=== PATIENT | male | born 1950 | race Caucasian/White ===

== ENCOUNTER → 2016-08-31 | Outpatient (CLI) | payer MEDICARE ==
[~2016-08-31] MED LIST: ADVAIR 250/501 DISK IH; ALEVE220 M2 PO; ALEVE220 MG PO; ASMANEX TW200 MICROG IH; ASPIRIN81 M2 PO; ATROVENT 00.5 MG/2.5 IH; CARVEDILOL3.125 MG PO; CLEOCIN150 MG PO; ENDOCET 5-3251 EACH PO; FUROSEMIDE20 MG PO; FUROSEMIDE40 MG PO; KEFLEX500 MG PO; KLOR-CON 1010 ME1 PO; LASIX40 MG PO; LISINOPRIL5 MG PO; MEDROL DOSEPAK4 MG PO; METHOCARBAMOL500 MG PO; NAPROSYN250 MG PO; OXYCONTIN10 MG PO; PERCOCET 10/1 TABLE1 PO; PROAIR HFA8.5 GM IH; PROVENTIL HFA6.7 GM IH; PROVENTIL,2.5 MG/3 M IH; SIMVASTATIN40 MG PO; SOTALOL120 MG PO; STIOLTO RESPIMAT4 GM IH; SYMBICORT60 INHALA1 IH; TRAMADOL HCL50 MG PO; TUDORZA PRESS400 MCG IH; XARELTO10 MG PO; ZESTRIL10 MG PO; ZESTRIL20 MG PO; ZOCOR40 MG PO
== END | disposition home or self-care (01) ==
LOC: CDC 12:05
DX: R00.1 Bradycardia, unspecified (principal); R94.31 Abnormal electrocardiogram [ECG] [EKG]; S93.324D Dislocation of tarsometatarsal joint of right foot, subsequent encounter; S92.351D Displaced fracture of fifth metatarsal bone, right foot, subsequent encounter for fracture with routine healing
CPT/HCPCS: 93000

== ENCOUNTER → 2016-10-14 | Day surgery (SDC) | payer OTHER, MEDICARE ==
[~2016-10-14] VITALS: Ht 177.8 cm; Wt 91.0 kg
[2016-10-14 10:34] VITALS: BP 103/55
[2016-10-14 15:00] VITALS: BP 110/65
[2016-10-14 15:32] VITALS: BP 102/60
== END | disposition home or self-care (01) ==
LOC: SDC 09-06 11:18
PROC: 0QPN04Z Removal of Internal Fixation Device from Right Metatarsal, Open Approach (ICD-10-PCS; principal; 2016-10-14)
DX: T84.293A Other mechanical complication of internal fixation device of bones of foot and toes, initial encounter (principal); I10 Essential (primary) hypertension; I25.2 Old myocardial infarction; J44.9 Chronic obstructive pulmonary disease, unspecified; Z95.810 Presence of automatic (implantable) cardiac defibrillator; F17.210 Nicotine dependence, cigarettes, uncomplicated; Z79.82 Long term (current) use of aspirin; Z79.899 Other long term (current) drug therapy; Z82.49 Family history of ischemic heart disease and other diseases of the circulatory system
CPT/HCPCS: 73630; 76000; C1769; J0131; J0690; J1100; J1885; J2405; J2765; J3010; S0020

== ENCOUNTER 2017-02-19 14:53 | Emergency (ER) | payer OTHER, MEDICARE ==
[~2017-02-19] VITALS: Ht 177.8 cm; Wt 87.0 kg
[2017-02-19 15:44] LABS: HEMATOCRIT 43.8 % (38.0-50.0); MCH 32.8 PG (29.0-34.0); MCHC 33.3 G/DL (30.0-36.0); MCV 98.4 FL (86-99); MEAN PLAT.VOLUME 9.9 uM^3 (9.0-12.4); PLATELET COUNT 232 K/uL (156-360); RBC DIS.WIDTH-CV 14.2 % (11.8-14.6); RBC DIS.WIDTH-SD 50.6 % (39-53); RED BLOOD COUNT 4.45 M/uL (4.00-5.50); WHITE BLOOD COUNT 8.6 K/uL (4.1-10.2)
[2017-02-19 15:53] LABS: INTER. NORMALIZED RATIO 1.1; PROTHROMBIN TIME 12.4 SEC (10.2-12.9)
[2017-02-19 15:55] LABS: PTT 29.7 SEC (25-37)
[2017-02-19 15:57] LABS: CHLORIDE 104 mEq/L (99-109); POTASSIUM 4.1 mEq/L (3.7-5.4); SODIUM 142 mEq/L (136-147)
[2017-02-19 15:59] LABS: GLUCOSE 99 mg/dL (70-99)
[2017-02-19 16:00] LABS: ANION GAP 13 MEQ/L (2-14)
[2017-02-19 16:01] LABS: TOTAL BILIRUBIN 0.5 mg/dL (0.0-1.0)
[2017-02-19 16:03] LABS: ALKALINE PHOSPHATASE 105 IU/L (3-129); GFR ESTIMATE (CALCULATED) 43 mL/min/
[2017-02-19 16:04] LABS: ADD MIUA? YES; BILIRUBIN NEGATIVE; BLOOD LARGE; GLUCOSE (STRIP) NEGATIVE; KETONES NEGATIVE; LEUKOCYTES NEGATIVE; NITRITE NEGATIVE; PROTEIN (STRIP) 100; SPECIFIC GRAVITY 1.012 (1.000-1.030); UROBILINOGEN 0.2 MG/DL (0.2-1.0)
[2017-02-19 16:04] LABS: UREA NITROGEN (BUN) 23 mg/dL (9-23)
[2017-02-19 16:06] LABS: LIPASE 36 U/L (1.0-51.0)
[2017-02-19 16:08] LABS: COLOR BROWN ((YELLOW))
[2017-02-19 16:12] LABS: TROP-I INTERPRETATION NEGATIVE; TROPONIN-I 0.03 ng/mL (0.0-0.30)
[2017-02-19 16:39] LABS: EPITHELIAL CELLS NONE SEEN /HPF; RED BLOOD CELLS TNTC /HPF (0-5); WHITE BLOOD CELLS 0-5 /HPF (0-5)
[2017-02-19 16:40] LABS: BACTERIA 1+ /HPF; MUCUS NONE SEEN /LPF; UCUL ADDED? YES
[2017-02-19 17:52] VITALS: BP 119/68
== END 2017-02-19 17:53 | disposition home or self-care (01) ==
LOC: EME 14:53
PROVIDERS: Emergency Medicine
DX: R31.9 Hematuria, unspecified (principal); N28.89 Other specified disorders of kidney and ureter; R10.30 Lower abdominal pain, unspecified; N28.1 Cyst of kidney, acquired; N40.0 Benign prostatic hyperplasia without lower urinary tract symptoms; K57.30 Diverticulosis of large intestine without perforation or abscess without bleeding; K40.90 Unilateral inguinal hernia, without obstruction or gangrene, not specified as recurrent; I71.4 Abdominal aortic aneurysm, without rupture; I25.10 Atherosclerotic heart disease of native coronary artery without angina pectoris; J44.9 Chronic obstructive pulmonary disease, unspecified; I10 Essential (primary) hypertension; Z95.0 Presence of cardiac pacemaker; Z79.82 Long term (current) use of aspirin; F17.200 Nicotine dependence, unspecified, uncomplicated
CPT/HCPCS: 74177; 80053; 81003; 83690; 84484; 85027; 85610; 85730; 87086 GA; 93005; 99281; 99284; J7030

== ENCOUNTER 2017-02-27 13:43 | Inpatient (IN) | payer OTHER, MEDICARE ==
[~2017-02-27] VITALS: Ht 177.8 cm; Wt 89.0 kg
[~2017-02-27 13:43] MED LIST changes: +LO-DOSE ASPIRIN81 M1 PO
[2017-02-27 14:34] LABS: HEMATOCRIT 39.7 % (38.0-50.0); MCH 33.3 PG (29.0-34.0); MCV 97.8 FL (86-99); MEAN PLAT.VOLUME 9.9 uM^3 (9.0-12.4); PLATELET COUNT 250 K/uL (156-360); RBC DIS.WIDTH-CV 14.6 % (11.8-14.6); RBC DIS.WIDTH-SD 52.9 % (39-53); RED BLOOD COUNT 4.06 M/uL (4.00-5.50); WHITE BLOOD COUNT 14.9 K/uL (4.1-10.2)
[2017-02-27 14:44] LABS: CHLORIDE 107 mEq/L (99-109); POTASSIUM 3.4 mEq/L (3.7-5.4); SODIUM 143 mEq/L (136-147)
[2017-02-27 14:46] LABS: GLUCOSE 116 mg/dL (70-99)
[2017-02-27 14:47] LABS: ANION GAP 13 MEQ/L (2-14)
[2017-02-27 14:50] LABS: GFR ESTIMATE (CALCULATED) 49 mL/min/
[2017-02-27 14:51] LABS: UREA NITROGEN (BUN) 33 mg/dL (9-23)
[2017-02-27 15:12] LABS: TROP-I INTERPRETATION NEGATIVE; TROPONIN-I 0.05 ng/mL (0.0-0.30)
[2017-02-27] MEDS ORDERED: ATROVENT 00.5 MG/2.5 IH (16:45)
[2017-02-27 19:50] VITALS: BP 116/57
[2017-02-27 23:15] VITALS: BP 111/61
[2017-02-28 03:40] VITALS: BP 129/64
[2017-02-28 07:03] LABS: MCHC 33.1 G/DL (30.0-36.0); MCV 99.7 FL (86-99); MEAN PLAT.VOLUME 9.9 uM^3 (9.0-12.4); PLATELET COUNT 199 K/uL (156-360); RBC DIS.WIDTH-CV 14.8 % (11.8-14.6); RBC DIS.WIDTH-SD 54.1 % (39-53); RED BLOOD COUNT 3.61 M/uL (4.00-5.50)
[2017-02-28 07:28] LABS: ANION GAP 13 MEQ/L (2-14); CHLORIDE 108 MEQ/L (99-109); GFR ESTIMATE (CALCULATED) 53 mL/min/; POTASSIUM 3.7 MEQ/L (3.7-5.4); SAMPLE HEMOLYSIS CHECK 0; SAMPLE ICTERIC CHECK 0; SAMPLE LIPEMIA CHECK 0; SODIUM 143 MEQ/L (136-147); UREA NITROGEN (BUN) 36 mg/dL (9-23)
[2017-02-28 07:31] LABS: GLUCOSE 219 mg/dL (70-99)
[2017-02-28 08:09] VITALS: BP 124/67
[2017-02-28 09:20] LABS: INTERNAL CONTROL VALID? YES
[2017-02-28 11:47] VITALS: BP 119/61
[2017-02-28 12:20] LABS: ADD MIUA? NO; BILIRUBIN NEGATIVE; BLOOD NEGATIVE; COLOR YELLOW ((YELLOW)); GLUCOSE (STRIP) NEGATIVE; KETONES NEGATIVE; LEUKOCYTES NEGATIVE; NITRITE NEGATIVE; PROTEIN (STRIP) NEGATIVE; SPECIFIC GRAVITY 1.015 (1.000-1.030); UROBILINOGEN 0.2 MG/DL (0.2-1.0)
[2017-02-28 15:53] VITALS: BP 130/66
[2017-02-28 20:08] VITALS: BP 121/60
[2017-03-01] VITALS (7 sets, daily range): BP systolic 107–141; BP diastolic 54–66
[2017-03-02 08:57] VITALS: BP 129/66
[2017-03-02] MEDS ORDERED: DELTASONE20 M1 PO (09:57)
[2017-03-02] MEDS ORDERED: LEVAQUIN500 MG PO (09:57)
== END 2017-03-02 10:43 | disposition home or self-care (01) | DRG 190 ==
LOC: EME 13:43 → 2EAST 16:57 → EDOF 16:57 → ENRESERV 17:00 → 2EAST 19:40
PROVIDERS: Emergency Medicine; Family Medicine
DX: J44.0 Chronic obstructive pulmonary disease with (acute) lower respiratory infection (principal); J18.9 Pneumonia, unspecified organism; J44.1 Chronic obstructive pulmonary disease with (acute) exacerbation; C64.1 Malignant neoplasm of right kidney, except renal pelvis; R55 Syncope and collapse; I25.10 Atherosclerotic heart disease of native coronary artery without angina pectoris; I34.0 Nonrheumatic mitral (valve) insufficiency; I25.5 Ischemic cardiomyopathy; N18.3 Chronic kidney disease, stage 3 (moderate); M10.9 Gout, unspecified; M79.671 Pain in right foot; I50.22 Chronic systolic (congestive) heart failure; G43.909 Migraine, unspecified, not intractable, without status migrainosus; F17.200 Nicotine dependence, unspecified, uncomplicated; I25.2 Old myocardial infarction; M15.9 Polyosteoarthritis, unspecified
CPT/HCPCS: 71020; 73630; 80048; 80202; 81003; 83880; 84484; 85027; 87449; 93005; 94640; 94640 76; 99202; 99281; 99285; J0692; J1644; J2930; J3370; J7030; J7050

== ENCOUNTER 2017-03-23 22:02 | Inpatient (IN) | payer OTHER, MEDICARE ==
[~2017-03-23] VITALS: Ht 177.8 cm; Wt 90.0 kg
[~2017-03-23 22:02] MED LIST changes: +DELTASONE20 M1 PO; +LEVAQUIN500 MG PO
[2017-03-24] VITALS (13 sets, daily range): BP systolic 106–145; BP diastolic 60–84
[2017-03-24] MEDS ORDERED: ULORIC40 MG PO (05:52)
[2017-03-24] MEDS ORDERED: PERCOCET 5/31 TABLET PO (10:03)
[2017-03-24 10:34] LABS: HEMATOCRIT 37.5 % (38.0-50.0); MCV 101.9 FL (86-99)
[2017-03-24 13:10] LABS: BICARBONATE 28.2 mEq/L (22-26); COMMENTS - BLOOD GASES A+C+; DEVICE VENT; METHEMOGLOBIN 1.7 % (0-1.5); PCO2 50 mm Hg (35-45); PO2 107 mm Hg (80-100); SITE LR; pH 7.36 (7.35-7.45)
[2017-03-24 13:11] LABS: FI02 60 %; MECHANICAL RATE 12 resp/min; MODE AC; PEEP 5 CM/H20; TIDAL VOLUME 500 ML; TOTAL RESP RATE 12 resp/min
[2017-03-24 13:26] LABS: EOSINOPHIL (%) 0.9 % (0-5); EOSINOPHIL COUNT 0.1 K/uL (0-0.3); HEMATOCRIT 34.7 % (38.0-50.0); IMMATURE GRANULOCYTE (%) 0.5 % (0.0-0.7); INSTRUMENT ABS NEUTROPHIL CT 6.1 K/uL; LYMPHOCYTE COUNT 0.8 K/uL (1.0-2.8); MCH 34.7 PG (29.0-34.0); MCHC 34.6 G/DL (30.0-36.0); MCV 100.3 FL (86-99); MEAN PLAT.VOLUME 9.5 uM^3 (9.0-12.4); MONOCYTE (%) 8.9 % (3-12); MONOCYTE COUNT 0.7 K/uL (0-0.8); NEUTROPHIL (%) 78.6 % (45-76); NEUTROPHIL COUNT 6.1 K/uL (1.8-6.4); PLATELET COUNT 162 K/uL (156-360); RBC DIS.WIDTH-CV 14.5 % (11.8-14.6); RBC DIS.WIDTH-SD 52.4 % (39-53); RED BLOOD COUNT 3.46 M/uL (4.00-5.50); WHITE BLOOD COUNT 7.7 K/uL (4.1-10.2)
[2017-03-24 13:33] LABS: PROTHROMBIN TIME 11.4 SEC (10.2-12.9)
[2017-03-24 13:36] LABS: PTT 26.4 SEC (25-37)
[2017-03-24 13:42] LABS: METH RESISTANT S AUREUS PCR NEGATIVE (NEGATIVE)
[2017-03-24 13:43] LABS: PROBE CHECK PASS; SPECIMEN PROCESSING CONTROL PASS
[2017-03-24 13:48] LABS: ALKALINE PHOSPHATASE 73 IU/L (3-129); ANION GAP 6 MEQ/L (2-14); CHLORIDE 104 MEQ/L (99-109); GFR ESTIMATE (CALCULATED) 49 mL/min/; GLUCOSE 131 mg/dL (70-99); MAGNESIUM 1.9 mg/dl (1.3-2.7); POTASSIUM 4.3 MEQ/L (3.7-5.4); SAMPLE HEMOLYSIS CHECK 0; SAMPLE ICTERIC CHECK 0; SAMPLE LIPEMIA CHECK 0; SODIUM 137 MEQ/L (136-147); TOTAL BILIRUBIN 0.4 MG/DL (0.0-1.0); UREA NITROGEN (BUN) 23 mg/dL (9-23)
[2017-03-25] VITALS (18 sets, daily range): BP systolic 81–124; BP diastolic 45–69
[2017-03-25 04:52] LABS: EOSINOPHIL (%) 0 % (0-5); HEMATOCRIT 32.7 % (38.0-50.0); IMMATURE GRANULOCYTE (%) 0.6 % (0.0-0.7); LYMPHOCYTE COUNT 0.8 K/uL (1.0-2.8); MCH 33.2 PG (29.0-34.0); MCHC 33.9 G/DL (30.0-36.0); MCV 97.9 FL (86-99); MEAN PLAT.VOLUME 9.8 uM^3 (9.0-12.4); MONOCYTE (%) 13.6 % (3-12); MONOCYTE COUNT 0.9 K/uL (0-0.8); NEUTROPHIL (%) 74.5 % (45-76); PLATELET COUNT 163 K/uL (156-360); RBC DIS.WIDTH-CV 14.3 % (11.8-14.6); RBC DIS.WIDTH-SD 51.7 % (39-53); RED BLOOD COUNT 3.34 M/uL (4.00-5.50); WHITE BLOOD COUNT 6.7 K/uL (4.1-10.2)
[2017-03-25 05:04] LABS: CHLORIDE 105 mEq/L (99-109); POTASSIUM 4.5 mEq/L (3.7-5.4); SODIUM 139 mEq/L (136-147)
[2017-03-25 05:05] LABS: GLUCOSE 119 mg/dL (70-99)
[2017-03-25 05:07] LABS: ANION GAP 10 MEQ/L (2-14)
[2017-03-25 05:09] LABS: GFR ESTIMATE (CALCULATED) 40 mL/min/
[2017-03-25 05:10] LABS: UREA NITROGEN (BUN) 23 mg/dL (9-23)
[2017-03-25 05:24] LABS: BASE EXCESS 2.3 mEq/L (-3 to +3); BICARBONATE 27.3 mEq/L (22-26); CARBOXY HGB 1.7 % (0-5); COMMENTS - BLOOD GASES C+A+; DEVICE VENTILATOR; FI02 30 %; MECHANICAL RATE 12 resp/min; METHEMOGLOBIN 1.7 % (0-1.5); MODE A/C; PCO2 43 mm Hg (35-45); PEEP 5 CM/H20; PO2 82 mm Hg (80-100); SITE RR; TIDAL VOLUME 500 ML; TOTAL RESP RATE 12 resp/min; pH 7.41 (7.35-7.45)
[2017-03-26 03:36] VITALS: BP 125/58
[2017-03-26 07:23] VITALS: BP 135/61
[2017-03-26 11:17] VITALS: BP 134/71
[2017-03-26 16:17] VITALS: BP 144/68
[2017-03-26 19:30] VITALS: BP 125/76
[2017-03-27 00:36] VITALS: BP 123/64
[2017-03-27 05:59] LABS: HEMATOCRIT 32.1 % (38.0-50.0); MCH 33.9 PG (29.0-34.0); MCV 99.7 FL (86-99); MEAN PLAT.VOLUME 9.5 uM^3 (9.0-12.4); PLATELET COUNT 163 K/uL (156-360); RBC DIS.WIDTH-CV 14.6 % (11.8-14.6); RBC DIS.WIDTH-SD 53.5 % (39-53); RED BLOOD COUNT 3.22 M/uL (4.00-5.50); WHITE BLOOD COUNT 5.6 K/uL (4.1-10.2)
[2017-03-27 06:21] LABS: ANION GAP 6 MEQ/L (2-14); CHLORIDE 103 MEQ/L (99-109); GFR ESTIMATE (CALCULATED) 32 mL/min/; POTASSIUM 4.6 MEQ/L (3.7-5.4); SAMPLE HEMOLYSIS CHECK 0; SAMPLE ICTERIC CHECK 0; SAMPLE LIPEMIA CHECK 0; SODIUM 137 MEQ/L (136-147); UREA NITROGEN (BUN) 29 mg/dL (9-23)
[2017-03-27 06:24] LABS: GLUCOSE 88 mg/dL (70-99)
[2017-03-27 07:27] VITALS: BP 143/82
[2017-03-27 11:13] VITALS: BP 141/79
[2017-03-27 16:14] VITALS: BP 112/65
[2017-03-27 19:23] VITALS: BP 142/79
[2017-03-27 23:20] VITALS: BP 133/74
[2017-03-28 06:32] LABS: EOSINOPHIL (%) 2.9 % (0-5); EOSINOPHIL COUNT 0.2 K/uL (0-0.3); IMMATURE GRANULOCYTE (%) 1.4 % (0.0-0.7); IMMATURE GRANULOCYTE COUNT 0.1 K/uL; INSTRUMENT ABS NEUTROPHIL CT 2.8 K/uL; LYMPHOCYTE COUNT 1.8 K/uL (1.0-2.8); MCH 34.4 PG (29.0-34.0); MCHC 34.3 G/DL (30.0-36.0); MCV 100.3 FL (86-99); MEAN PLAT.VOLUME 9.8 uM^3 (9.0-12.4); MONOCYTE (%) 12.5 % (3-12); MONOCYTE COUNT 0.7 K/uL (0-0.8); NEUTROPHIL COUNT 2.8 K/uL (1.8-6.4); PLATELET COUNT 172 K/uL (156-360); RBC DIS.WIDTH-CV 14.3 % (11.8-14.6); RBC DIS.WIDTH-SD 51.6 % (39-53); RED BLOOD COUNT 2.99 M/uL (4.00-5.50); WHITE BLOOD COUNT 5.6 K/uL (4.1-10.2)
[2017-03-28 06:57] LABS: ANION GAP 6 MEQ/L (2-14); CHLORIDE 104 MEQ/L (99-109); GFR ESTIMATE (CALCULATED) 30 mL/min/; GLUCOSE 90 mg/dL (70-99); POTASSIUM 4.5 MEQ/L (3.7-5.4); SAMPLE HEMOLYSIS CHECK 0; SAMPLE ICTERIC CHECK 0; SAMPLE LIPEMIA CHECK 0; SODIUM 140 MEQ/L (136-147); UREA NITROGEN (BUN) 29 mg/dL (9-23)
[2017-03-28 07:15] VITALS: BP 142/77
[2017-03-28 11:30] VITALS: BP 152/72
[2017-03-28 14:36] LABS: ANION GAP 6 MEQ/L (2-14); CHLORIDE 105 MEQ/L (99-109); GFR ESTIMATE (CALCULATED) 33 mL/min/; GLUCOSE 131 mg/dL (70-99); SAMPLE HEMOLYSIS CHECK 0; SAMPLE ICTERIC CHECK 0; SAMPLE LIPEMIA CHECK 0; SODIUM 138 MEQ/L (136-147); UREA NITROGEN (BUN) 28 mg/dL (9-23)
[2017-03-28 15:25] VITALS: BP 146/75
[2017-03-28 19:45] VITALS: BP 157/76
[2017-03-29 04:00] VITALS: BP 135/68
[2017-03-29 06:58] LABS: ANION GAP 8 MEQ/L (2-14); CHLORIDE 107 MEQ/L (99-109); GFR ESTIMATE (CALCULATED) 32 mL/min/; POTASSIUM 4.7 MEQ/L (3.7-5.4); SAMPLE HEMOLYSIS CHECK 0; SAMPLE ICTERIC CHECK 0; SAMPLE LIPEMIA CHECK 0; SODIUM 141 MEQ/L (136-147); UREA NITROGEN (BUN) 27 mg/dL (9-23)
[2017-03-29 07:06] LABS: GLUCOSE 92 mg/dL (70-99)
[2017-03-29 07:22] VITALS: BP 135/77
[2017-03-29] MEDS ORDERED: HYDROMORPHONE HC4 MG PO (08:14)
[2017-03-29 10:54] VITALS: BP 165/84
[2017-03-29 14:57] LABS: ANION GAP 7 MEQ/L (2-14); CHLORIDE 109 MEQ/L (99-109); POTASSIUM 4.5 MEQ/L (3.7-5.4); SAMPLE HEMOLYSIS CHECK 0; SAMPLE ICTERIC CHECK 0; SAMPLE LIPEMIA CHECK 0; SODIUM 141 MEQ/L (136-147)
[2017-03-29 15:05] LABS: GFR ESTIMATE (CALCULATED) 35 mL/min/; GLUCOSE 96 mg/dL (70-99); UREA NITROGEN (BUN) 25 mg/dL (9-23)
[2017-03-29 15:24] VITALS: BP 125/68
[2017-03-29 23:37] VITALS: BP 150/67
[2017-03-30 06:20] LABS: ANION GAP 7 MEQ/L (2-14); CHLORIDE 109 MEQ/L (99-109); GFR ESTIMATE (CALCULATED) 32 mL/min/; GLUCOSE 99 mg/dL (70-99); POTASSIUM 5.1 MEQ/L (3.7-5.4); SAMPLE HEMOLYSIS CHECK 0; SAMPLE ICTERIC CHECK 0; SAMPLE LIPEMIA CHECK 0; SODIUM 139 MEQ/L (136-147); UREA NITROGEN (BUN) 24 mg/dL (9-23)
[2017-03-30 07:36] VITALS: BP 140/81
[2017-03-30] MEDS ORDERED: CARVEDILOL3.125 MG PO (09:32)
[2017-03-30] MEDS ORDERED: ZESTRIL20 MG PO (09:33)
[2017-03-30] MEDS ORDERED: LASIX40 MG PO (09:34)
== END 2017-03-30 11:15 | disposition home or self-care (01) | DRG 656 ==
LOC: ENRESERV 22:02 → 4WEST 03-24 05:23 → 2SOUTH 03-24 05:23 → ENRESERV 03-24 09:46 → 2SOUTH 03-24 10:32 → ENRESERV 03-24 10:35 → 4WEST 03-24 12:00 → 2SOUTH 03-24 12:36 → 4WEST 03-25 13:48 → ENRESERV 03-25 13:51 → 5EAST 03-25 15:57 → ENPENDDIS 03-30 → 5EAST 03-30 11:15
PROVIDERS: Anesthesiology; Family Medicine; Nurse Practitioner Adult Health; Specialist; Urology
DX: C64.1 Malignant neoplasm of right kidney, except renal pelvis (principal); N18.3 Chronic kidney disease, stage 3 (moderate); J95.822 Acute and chronic postprocedural respiratory failure; I12.9 Hypertensive chronic kidney disease with stage 1 through stage 4 chronic kidney disease, or unspecified chronic kidney disease; I25.10 Atherosclerotic heart disease of native coronary artery without angina pectoris; I42.0 Dilated cardiomyopathy; K59.00 Constipation, unspecified; I25.5 Ischemic cardiomyopathy; E78.5 Hyperlipidemia, unspecified; D64.9 Anemia, unspecified; M19.90 Unspecified osteoarthritis, unspecified site; R31.0 Gross hematuria; F17.210 Nicotine dependence, cigarettes, uncomplicated; E78.1 Pure hyperglyceridemia; M10.9 Gout, unspecified; J98.11 Atelectasis; J44.1 Chronic obstructive pulmonary disease with (acute) exacerbation; Z82.49 Family history of ischemic heart disease and other diseases of the circulatory system; Z79.899 Other long term (current) drug therapy; Z79.82 Long term (current) use of aspirin; R73.9 Hyperglycemia, unspecified
CPT/HCPCS: 36415; 36600; 71010; 80048; 80048 91; 80053; 82803; 83605; 83735; 83880; 84100; 85014; 85018; 85025; 85027; 85610; 85730; 86850; 86900; 86901; 87070; 87205; 87641; 88307; 93005; 94002; 94640; 94640 76; 94760; 94799; 99202; J0330; J0690; J1100; J1170; J1885; J1940; J2250; J2405; J2704; J2710; J3010; J7050; S0028

== ENCOUNTER 2017-09-21 02:48 | Inpatient (IN) | payer OTHER, MEDICARE ==
[~2017-09-21] VITALS: Ht 177.8 cm; Wt 89.0 kg
[~2017-09-21 02:48] MED LIST changes: +HYDROMORPHONE HC4 MG PO; +PERCOCET 5/31 TABLET PO; +ULORIC40 MG PO
[2017-09-21 03:12] LABS: HEMATOCRIT 34.7 % (38.0-50.0); HEMOGLOBIN 12.1 G/DL (12.5-16.6); MCH 34.9 PG (29.0-34.0); MCHC 34.9 G/DL (30.0-36.0); PLATELET COUNT 151 K/uL (156-360); RBC DIS.WIDTH-CV 14.3 % (11.8-14.6); RBC DIS.WIDTH-SD 51.3 % (39-53); RED BLOOD COUNT 3.47 M/uL (4.00-5.50); WHITE BLOOD COUNT 7.9 K/uL (4.1-10.2)
[2017-09-21 03:18] LABS: INTER. NORMALIZED RATIO 1.1
[2017-09-21 03:20] LABS: CHLORIDE 109 mEq/L (99-109); POTASSIUM 3.3 mEq/L (3.7-5.4); PTT 27.6 SEC (25-37); SODIUM 146 mEq/L (136-147)
[2017-09-21 03:21] LABS: MAGNESIUM 2.2 mg/dL (1.3-2.7)
[2017-09-21 03:22] LABS: GLUCOSE 142 mg/dL (70-99)
[2017-09-21 03:26] LABS: CREATININE 1.9 mg/dL (0.6-1.3); GFR ESTIMATE (CALCULATED) 38 mL/min/ (58.99-99999)
[2017-09-21 03:27] LABS: UREA NITROGEN (BUN) 24 mg/dL (9-23)
[2017-09-21 03:34] LABS: TROP-I INTERPRETATION NEGATIVE; TROPONIN-I 0.17 ng/mL (0.0-0.30)
[2017-09-21 07:14] VITALS: BP 121/68
[2017-09-21 07:42] VITALS: BP 121/68
[2017-09-21] MEDS ORDERED: COREG3.125 M1 PO (10:29)
[2017-09-21] MEDS ORDERED: LASIX40 MG PO (10:31)
[2017-09-21] MEDS ORDERED: PLAVIX75 MG PO (10:32)
[2017-09-21 10:57] VITALS: BP 110/67
[2017-09-21 11:27] LABS: TROP-I INTERPRETATION POSITIVE
[2017-09-21 15:41] VITALS: BP 111/65
[2017-09-21 19:40] LABS: TROP-I INTERPRETATION POSITIVE
[2017-09-21 19:45] VITALS: BP 121/76
[2017-09-21 23:09] VITALS: BP 112/79
[2017-09-22] VITALS (21 sets, daily range): BP systolic 66–188; BP diastolic 46–129
[2017-09-22 05:09] LABS: BASOPHIL (%) 0.6 % (0-1); EOSINOPHIL (%) 2.1 % (0-5); EOSINOPHIL COUNT 0.2 K/uL (0-0.3); HEMATOCRIT 34.8 % (38.0-50.0); HEMOGLOBIN 11.6 G/DL (12.5-16.6); IMMATURE GRANULOCYTE (%) 0.3 % (0.0-0.7); LYMPHOCYTE (%) 27.1 % (15-42); LYMPHOCYTE COUNT 1.9 K/uL (1.0-2.8); MCH 33.9 PG (29.0-34.0); MCHC 33.3 G/DL (30.0-36.0); MCV 101.8 FL (86-99); MONOCYTE (%) 10.5 % (3-12); MONOCYTE COUNT 0.7 K/uL (0-0.8); NEUTROPHIL (%) 59.4 % (45-76); NEUTROPHIL COUNT 4.2 K/uL (1.8-6.4); PLATELET COUNT 168 K/uL (156-360); RBC DIS.WIDTH-CV 14.5 % (11.8-14.6); RBC DIS.WIDTH-SD 53.5 % (39-53); RED BLOOD COUNT 3.42 M/uL (4.00-5.50); WHITE BLOOD COUNT 7.1 K/uL (4.1-10.2)
[2017-09-22 05:36] LABS: ALBUMIN 3.4 G/DL (3.2-4.8); ALKALINE PHOSPHATASE 84 IU/L (3-129); ALT (GPT) 31 IU/L (3-49); AST (GOT) 66 IU/L (2-34); CHLORIDE 110 MEQ/L (99-109); CREATININE 1.8 MG/DL (0.6-1.3); GFR ESTIMATE (CALCULATED) 40 mL/min/ (58.99-99999); GLUCOSE 126 mg/dL (70-99); MAGNESIUM 2.1 mg/dl (1.3-2.7); POTASSIUM 3.9 MEQ/L (3.7-5.4); SODIUM 142 MEQ/L (136-147); TOTAL BILIRUBIN 0.3 MG/DL (0.0-1.0); TOTAL PROTEIN 5.8 G/DL (6.4-8.3); UREA NITROGEN (BUN) 19 mg/dL (9-23)
[2017-09-22 07:56] LABS: THYROTROPIN (TSH) 1.9 MIU/L (0.4-5.5)
[2017-09-22 08:27] LABS: INTACT PARATHYROID HORMONE 149 pg/mL (10-69)
[2017-09-22 09:49] LABS: HEMOGLOBIN A1c (GLYCOHEMOGLOB) 5.6 % (Below 5.7)
[2017-09-22 15:44] LABS: BASE EXCESS -10.8 mEq/L (-3 to +3); BICARBONATE 23.2 mEq/L (22-26); CARBOXY HGB 1.2 % (0-5); METHEMOGLOBIN 1.4 % (0-1.5); PCO2 92 mm Hg (35-45); pH 7.01 (7.35-7.45)
[2017-09-22 15:45] LABS: COMMENTS - BLOOD GASES C+; DEVICE NRBM; O2 FLOW 15 L/MIN; PO2 39 mm Hg (80-100); SITE RR
[2017-09-22 16:22] LABS: BASE EXCESS -7.2 mEq/L (-3 to +3); BICARBONATE 21.5 mEq/L (22-26); CARBOXY HGB 2.2 % (0-5); METHEMOGLOBIN 1.5 % (0-1.5)
[2017-09-22 16:23] LABS: COMMENTS - BLOOD GASES C+ANA; DEVICE 840 PB; FI02 100 %; MECHANICAL RATE 12 resp/min; MODE AC; PCO2 55 mm Hg (35-45); PEEP 10 CM/H20; PO2 74 mm Hg (80-100); SITE ALINE; TIDAL VOLUME 700 ML; TOTAL RESP RATE 12 resp/min
[2017-09-22 16:41] LABS: BASE EXCESS 2.7 mEq/L (-3 to +3); BICARBONATE 28.9 mEq/L (22-26); CARBOXY HGB 2.3 % (0-5); COMMENTS - BLOOD GASES C+; DEVICE VENT; FI02 100 %; MECHANICAL RATE 12 resp/min; METHEMOGLOBIN 1.4 % (0-1.5); MODE AC; PCO2 50 mm Hg (35-45); PEEP 10 CM/H20; PO2 83 mm Hg (80-100); SITE ALINE; TIDAL VOLUME 700 ML; pH 7.37 (7.35-7.45)
[2017-09-22 19:04] LABS: BICARBONATE 29.2 mEq/L (22-26); CARBOXY HGB 2.5 % (0-5); METHEMOGLOBIN 1.7 % (0-1.5); PO2 67 mm Hg (80-100); pH 7.42 (7.35-7.45)
[2017-09-22 19:05] LABS: COMMENTS - BLOOD GASES C+; DEVICE VENT; FI02 50 %; MECHANICAL RATE 12 resp/min; MODE AC; PCO2 45 mm Hg (35-45); PEEP 10 CM/H20; SITE RR; TIDAL VOLUME 700 ML; TOTAL RESP RATE 12 resp/min
[2017-09-22 19:46] LABS: BASOPHIL (%) 0.6 % (0-1); BASOPHIL COUNT 0.1 K/uL (0-0.1); EOSINOPHIL (%) 0.2 % (0-5); HEMATOCRIT 37.5 % (38.0-50.0); HEMOGLOBIN 12.6 G/DL (12.5-16.6); LYMPHOCYTE (%) 5.4 % (15-42); LYMPHOCYTE COUNT 0.9 K/uL (1.0-2.8); MCH 33.7 PG (29.0-34.0); MCHC 33.6 G/DL (30.0-36.0); MCV 100.3 FL (86-99); MONOCYTE (%) 5.6 % (3-12); MONOCYTE COUNT 0.9 K/uL (0-0.8); NEUTROPHIL (%) 87.2 % (45-76); NEUTROPHIL COUNT 14.1 K/uL (1.8-6.4); PLATELET COUNT 214 K/uL (156-360); RBC DIS.WIDTH-CV 14.3 % (11.8-14.6); RBC DIS.WIDTH-SD 51.6 % (39-53); RED BLOOD COUNT 3.74 M/uL (4.00-5.50); WHITE BLOOD COUNT 16.2 K/uL (4.1-10.2)
[2017-09-22 20:29] LABS: BASE EXCESS 3.3 mEq/L (-3 to +3); BICARBONATE 27.8 mEq/L (22-26); CARBOXY HGB 2.3 % (0-5); METHEMOGLOBIN 1.6 % (0-1.5); PCO2 41 mm Hg (35-45); pH 7.44 (7.35-7.45)
[2017-09-22 20:30] LABS: COMMENTS - BLOOD GASES C+; DEVICE VENT; FI02 50 %; MECHANICAL RATE 20 resp/min; MODE AC; PEEP 10 CM/H20; PO2 82 mm Hg (80-100); SITE RR; TIDAL VOLUME 500 ML; TOTAL RESP RATE 20 resp/min
[2017-09-22 20:47] LABS: ALBUMIN 3.2 G/DL (3.2-4.8); ALKALINE PHOSPHATASE 81 IU/L (3-129); ALT (GPT) 27 IU/L (3-49); AST (GOT) 54 IU/L (2-34); CHLORIDE 108 MEQ/L (99-109); CREATININE 1.8 MG/DL (0.6-1.3); GFR ESTIMATE (CALCULATED) 40 mL/min/ (58.99-99999); GLUCOSE 148 mg/dL (70-99); HIGH-SENS C-REACTIVE PROTEIN 2.01 MG/DL (0.02-0.20); MAGNESIUM 1.8 mg/dl (1.3-2.7); PHOSPHORUS 1.8 mg/dL (2.5-4.9); SODIUM 142 MEQ/L (136-147); TOTAL BILIRUBIN 0.8 MG/DL (0.0-1.0); TOTAL PROTEIN 5.5 G/DL (6.4-8.3); UREA NITROGEN (BUN) 17 mg/dL (9-23)
[2017-09-23] VITALS (8 sets, daily range): BP systolic 98–116; BP diastolic 55–65
[2017-09-23 00:56] LABS: TROP-I INTERPRETATION POSITIVE
[2017-09-23 06:07] LABS: BASE EXCESS 1.5 mEq/L (-3 to +3); BICARBONATE 26.6 mEq/L (22-26); CARBOXY HGB 2.2 % (0-5); METHEMOGLOBIN 1.8 % (0-1.5); PCO2 43 mm Hg (35-45)
[2017-09-23 06:08] LABS: COMMENTS - BLOOD GASES C+; DEVICE VENT; FI02 50 %; MECHANICAL RATE 20 resp/min; MODE AC; PEEP 10 CM/H20; PO2 59 mm Hg (80-100); SITE RR; TIDAL VOLUME 500 ML; TOTAL RESP RATE 20 resp/min
[2017-09-23 08:31] LABS: BASOPHIL (%) 0.1 % (0-1); EOSINOPHIL (%) 0 % (0-5); HEMOGLOBIN 11.9 G/DL (12.5-16.6); IMMATURE GRANULOCYTE (%) 0.6 % (0.0-0.7); LYMPHOCYTE (%) 6.1 % (15-42); LYMPHOCYTE COUNT 0.9 K/uL (1.0-2.8); MONOCYTE (%) 4.6 % (3-12); MONOCYTE COUNT 0.7 K/uL (0-0.8); NEUTROPHIL (%) 88.6 % (45-76); NEUTROPHIL COUNT 13.3 K/uL (1.8-6.4); PLATELET COUNT 214 K/uL (156-360); RBC DIS.WIDTH-CV 14.1 % (11.8-14.6); RBC DIS.WIDTH-SD 51.7 % (39-53)
[2017-09-23 09:04] LABS: CHLORIDE 106 MEQ/L (99-109); CREATININE 2.1 MG/DL (0.6-1.3); GFR ESTIMATE (CALCULATED) 33 mL/min/ (58.99-99999); GLUCOSE 221 mg/dL (70-99); POTASSIUM 4.6 MEQ/L (3.7-5.4); SODIUM 141 MEQ/L (136-147); UREA NITROGEN (BUN) 22 mg/dL (9-23)
[2017-09-23 09:10] LABS: TROP-I INTERPRETATION POSITIVE
[2017-09-23 09:21] LABS: TROPONIN-I 1.02 ng/mL (0.0-0.30)
[2017-09-23 17:00] LABS: BASE EXCESS 0 mEq/L (-3 to +3); BICARBONATE 24.8 mEq/L (22-26); CARBOXY HGB 2.1 % (0-5); METHEMOGLOBIN 1.7 % (0-1.5); PCO2 40 mm Hg (35-45); PO2 70 mm Hg (80-100)
[2017-09-23 17:01] LABS: COMMENTS - BLOOD GASES C+; DEVICE NC; O2 FLOW 5 L/MIN; SITE ALINE; TOTAL RESP RATE 14 resp/min
[2017-09-24] VITALS (15 sets, daily range): BP systolic 98–139; BP diastolic 54–75
[2017-09-24 06:20] LABS: BASOPHIL (%) 0 % (0-1); EOSINOPHIL (%) 0.1 % (0-5); HEMATOCRIT 30.8 % (38.0-50.0); HEMOGLOBIN 10.2 G/DL (12.5-16.6); IMMATURE GRANULOCYTE (%) 0.8 % (0.0-0.7); LYMPHOCYTE (%) 7.9 % (15-42); LYMPHOCYTE COUNT 0.8 K/uL (1.0-2.8); MCH 34.1 PG (29.0-34.0); MCHC 33.1 G/DL (30.0-36.0); MONOCYTE (%) 6.7 % (3-12); MONOCYTE COUNT 0.7 K/uL (0-0.8); NEUTROPHIL (%) 84.5 % (45-76); NEUTROPHIL COUNT 8.3 K/uL (1.8-6.4); RBC DIS.WIDTH-CV 14.5 % (11.8-14.6); RBC DIS.WIDTH-SD 54.7 % (39-53); RED BLOOD COUNT 2.99 M/uL (4.00-5.50); WHITE BLOOD COUNT 9.8 K/uL (4.1-10.2)
[2017-09-24 06:23] LABS: CHLORIDE 107 MEQ/L (99-109); CREATININE 1.7 MG/DL (0.6-1.3); GFR ESTIMATE (CALCULATED) 43 mL/min/ (58.99-99999); GLUCOSE 122 mg/dL (70-99); POTASSIUM 4.7 MEQ/L (3.7-5.4); SODIUM 140 MEQ/L (136-147); UREA NITROGEN (BUN) 26 mg/dL (9-23)
[2017-09-24 06:37] LABS: PLATELET COUNT 139 K/uL (156-360)
[2017-09-24 06:40] LABS: PLAT.SUFFICIENCY DECREASED
[2017-09-25 04:02] VITALS: BP 129/66
[2017-09-25 05:16] LABS: BASOPHIL (%) 0.1 % (0-1); EOSINOPHIL (%) 0 % (0-5); HEMATOCRIT 31.2 % (38.0-50.0); HEMOGLOBIN 10.5 G/DL (12.5-16.6); IMMATURE GRANULOCYTE (%) 1.3 % (0.0-0.7); LYMPHOCYTE (%) 4.9 % (15-42); LYMPHOCYTE COUNT 0.6 K/uL (1.0-2.8); MCH 34.4 PG (29.0-34.0); MCHC 33.7 G/DL (30.0-36.0); MCV 102.3 FL (86-99); MONOCYTE (%) 4.6 % (3-12); MONOCYTE COUNT 0.6 K/uL (0-0.8); NEUTROPHIL (%) 89.1 % (45-76); NEUTROPHIL COUNT 11.5 K/uL (1.8-6.4); RBC DIS.WIDTH-CV 14.5 % (11.8-14.6); RBC DIS.WIDTH-SD 53.8 % (39-53); RED BLOOD COUNT 3.05 M/uL (4.00-5.50)
[2017-09-25 05:17] LABS: PLATELET COUNT 184 K/uL (156-360)
[2017-09-25 06:01] LABS: CHLORIDE 106 MEQ/L (99-109); CREATININE 1.7 MG/DL (0.6-1.3); GFR ESTIMATE (CALCULATED) 43 mL/min/ (58.99-99999); GLUCOSE 160 mg/dL (70-99); POTASSIUM 4.5 MEQ/L (3.7-5.4); SODIUM 141 MEQ/L (136-147); UREA NITROGEN (BUN) 39 mg/dL (9-23)
[2017-09-25 07:26] VITALS: BP 149/87
[2017-09-25 11:07] VITALS: BP 128/60
[2017-09-25 15:46] VITALS: BP 132/69
[2017-09-25 19:22] VITALS: BP 131/71
[2017-09-25 22:55] VITALS: BP 128/64
[2017-09-26 04:11] VITALS: BP 118/69
[2017-09-26 06:19] LABS: BASOPHIL (%) 0.2 % (0-1); EOSINOPHIL (%) 0 % (0-5); HEMATOCRIT 31.8 % (38.0-50.0); HEMOGLOBIN 10.7 G/DL (12.5-16.6); LYMPHOCYTE (%) 9.8 % (15-42); LYMPHOCYTE COUNT 1.1 K/uL (1.0-2.8); MCH 34.1 PG (29.0-34.0); MCHC 33.6 G/DL (30.0-36.0); MCV 101.3 FL (86-99); MONOCYTE (%) 8.3 % (3-12); NEUTROPHIL (%) 80.7 % (45-76); NEUTROPHIL COUNT 9.4 K/uL (1.8-6.4); PLATELET COUNT 196 K/uL (156-360); RBC DIS.WIDTH-CV 14.6 % (11.8-14.6); RBC DIS.WIDTH-SD 53.1 % (39-53); RED BLOOD COUNT 3.14 M/uL (4.00-5.50); WHITE BLOOD COUNT 11.6 K/uL (4.1-10.2)
[2017-09-26 06:35] LABS: CHLORIDE 109 MEQ/L (99-109); CREATININE 1.9 MG/DL (0.6-1.3); GFR ESTIMATE (CALCULATED) 38 mL/min/ (58.99-99999); POTASSIUM 4.5 MEQ/L (3.7-5.4); SODIUM 144 MEQ/L (136-147); UREA NITROGEN (BUN) 36 mg/dL (9-23)
[2017-09-26 06:36] LABS: GLUCOSE 102 mg/dL (70-99)
[2017-09-26 07:08] VITALS: BP 121/64
[2017-09-26 11:50] VITALS: BP 130/79
[2017-09-26 15:17] VITALS: BP 156/70
[2017-09-26 19:00] VITALS: BP 144/68
[2017-09-26 23:28] VITALS: BP 145/70
[2017-09-27 02:52] VITALS: BP 135/73
[2017-09-27 05:41] LABS: BASOPHIL (%) 0.2 % (0-1); EOSINOPHIL (%) 0 % (0-5); HEMATOCRIT 33.1 % (38.0-50.0); HEMOGLOBIN 11.5 G/DL (12.5-16.6); IMMATURE GRANULOCYTE (%) 1.9 % (0.0-0.7); LYMPHOCYTE (%) 7.7 % (15-42); LYMPHOCYTE COUNT 0.7 K/uL (1.0-2.8); MCH 34.7 PG (29.0-34.0); MCHC 34.7 G/DL (30.0-36.0); MONOCYTE (%) 3.4 % (3-12); MONOCYTE COUNT 0.3 K/uL (0-0.8); NEUTROPHIL (%) 86.8 % (45-76); NEUTROPHIL COUNT 7.7 K/uL (1.8-6.4); PLATELET COUNT 189 K/uL (156-360); RBC DIS.WIDTH-CV 13.9 % (11.8-14.6); RBC DIS.WIDTH-SD 51.3 % (39-53); RED BLOOD COUNT 3.31 M/uL (4.00-5.50); WHITE BLOOD COUNT 8.9 K/uL (4.1-10.2)
[2017-09-27 06:04] LABS: CHLORIDE 102 MEQ/L (99-109); CREATININE 1.9 MG/DL (0.6-1.3); GFR ESTIMATE (CALCULATED) 38 mL/min/ (58.99-99999); POTASSIUM 3.9 MEQ/L (3.7-5.4); SODIUM 141 MEQ/L (136-147); UREA NITROGEN (BUN) 39 mg/dL (9-23)
[2017-09-27 06:09] LABS: GLUCOSE 172 mg/dL (70-99)
[2017-09-27 08:16] VITALS: BP 119/74
[2017-09-27 12:10] VITALS: BP 135/68
[2017-09-27 16:25] VITALS: BP 110/55
[2017-09-27 19:50] VITALS: BP 115/68
[2017-09-28 00:40] VITALS: BP 142/48
[2017-09-28 04:00] VITALS: BP 142/60
[2017-09-28 05:26] LABS: BASOPHIL (%) 0.1 % (0-1); EOSINOPHIL (%) 0 % (0-5); HEMATOCRIT 34.5 % (38.0-50.0); HEMOGLOBIN 11.8 G/DL (12.5-16.6); IMMATURE GRANULOCYTE (%) 1.8 % (0.0-0.7); LYMPHOCYTE (%) 6.4 % (15-42); LYMPHOCYTE COUNT 0.7 K/uL (1.0-2.8); MCH 34.2 PG (29.0-34.0); MCHC 34.2 G/DL (30.0-36.0); MONOCYTE COUNT 0.6 K/uL (0-0.8); NEUTROPHIL (%) 85.7 % (45-76); NEUTROPHIL COUNT 8.7 K/uL (1.8-6.4); PLATELET COUNT 190 K/uL (156-360); RBC DIS.WIDTH-SD 50.6 % (39-53); RED BLOOD COUNT 3.45 M/uL (4.00-5.50); WHITE BLOOD COUNT 10.2 K/uL (4.1-10.2)
[2017-09-28 05:48] LABS: CHLORIDE 102 MEQ/L (99-109); GFR ESTIMATE (CALCULATED) 35 mL/min/ (58.99-99999); GLUCOSE 137 mg/dL (70-99); MAGNESIUM 2.3 mg/dl (1.3-2.7); POTASSIUM 3.7 MEQ/L (3.7-5.4); SODIUM 141 MEQ/L (136-147); UREA NITROGEN (BUN) 48 mg/dL (9-23)
[2017-09-28 07:45] VITALS: BP 127/74
[2017-09-28 11:56] VITALS: BP 125/69
[2017-09-28 18:00] VITALS: BP 119/59
[2017-09-28 20:00] VITALS: BP 112/69
[2017-09-29] VITALS: BP 95/52
[2017-09-29 05:43] LABS: CHLORIDE 99 MEQ/L (99-109); CREATININE 1.9 MG/DL (0.6-1.3); GFR ESTIMATE (CALCULATED) 38 mL/min/ (58.99-99999); GLUCOSE 147 mg/dL (70-99); POTASSIUM 3.6 MEQ/L (3.7-5.4); SODIUM 139 MEQ/L (136-147); UREA NITROGEN (BUN) 47 mg/dL (9-23)
[2017-09-29 07:24] VITALS: BP 117/64
[2017-09-29] MEDS ORDERED: CORDARONE200 MG PO (11:38)
[2017-09-29] MEDS ORDERED: LOSARTAN POTASS25 MG PO (11:50)
[2017-09-29] MEDS ORDERED: PREDNISONE20 MG PO (11:51)
[2017-09-29] MEDS ORDERED: LEVOFLOXACIN750 MG PO (11:52)
[2017-09-29] MEDS ORDERED: ADULT ASPIRIN81 MG PO (11:53)
[2017-09-29 12:04] VITALS: BP 110/72
== END 2017-09-29 13:02 | disposition home or self-care (01) | DRG 286 ==
LOC: EME → EDBD 02:48 → 4EAST 04:25 → 4WEST 04:25 → EDOF 04:25 → 4EAST 04:25 → ENRESERV 04:27 → 4EAST 07:09 → ENRESERV 09-22 15:27 → 4WEST 09-22 15:27 → ENRESERV 09-24 17:04 → 4EAST 09-24 18:20
PROVIDERS: Emergency Medicine; Family Medicine; Internal Medicine; Internal Medicine Critical Care Medicine
DX: I47.2 Ventricular tachycardia (principal); I49.01 Ventricular fibrillation; I46.9 Cardiac arrest, cause unspecified; J96.01 Acute respiratory failure with hypoxia; R56.9 Unspecified convulsions; J44.1 Chronic obstructive pulmonary disease with (acute) exacerbation; E87.2 Acidosis; J44.0 Chronic obstructive pulmonary disease with (acute) lower respiratory infection; J18.9 Pneumonia, unspecified organism; D64.9 Anemia, unspecified; E87.6 Hypokalemia; R73.9 Hyperglycemia, unspecified; R74.8 Abnormal levels of other serum enzymes; I63.9 Cerebral infarction, unspecified; I13.0 Hypertensive heart and chronic kidney disease with heart failure and stage 1 through stage 4 chronic kidney disease, or unspecified chronic kidney disease; I50.22 Chronic systolic (congestive) heart failure; N18.3 Chronic kidney disease, stage 3 (moderate); I25.5 Ischemic cardiomyopathy; G43.909 Migraine, unspecified, not intractable, without status migrainosus; E78.5 Hyperlipidemia, unspecified; E78.1 Pure hyperglyceridemia; M10.9 Gout, unspecified; I25.10 Atherosclerotic heart disease of native coronary artery without angina pectoris; I73.9 Peripheral vascular disease, unspecified; I08.1 Rheumatic disorders of both mitral and tricuspid valves; I25.82 Chronic total occlusion of coronary artery; I27.20 Pulmonary hypertension, unspecified; F17.200 Nicotine dependence, unspecified, uncomplicated; Z95.810 Presence of automatic (implantable) cardiac defibrillator; Z95.5 Presence of coronary angioplasty implant and graft; I25.2 Old myocardial infarction; Z90.5 Acquired absence of kidney; Z85.528 Personal history of other malignant neoplasm of kidney; Z79.82 Long term (current) use of aspirin; Z79.02 Long term (current) use of antithrombotics/antiplatelets
CPT/HCPCS: 36600; 70450; 71045; 71046; 71250; 80048; 80053; 82306; 82607; 82803; 82948; 83036; 83605; 83735; 83880; 83970; 84100; 84145 90; 84443; 84484; 85025; 85025 91; 85027; 85379; 85610; 85730; 86141; 87070; 87205; 87449; 87641; 93005; 93306; 94002; 94003; 94640; 94640 76; 94799; 95819; 99202; 99281; 99285; C1751; C1769; C1887; J0456; J0461; J0696; J1250; J1644; J1815; J2060; J2250; J2260; J2704; J2920; J2930; J3010; J7040; J7050; J7512

== ENCOUNTER 2017-10-04 19:45 | Inpatient (IN) | payer OTHER, MEDICARE ==
[~2017-10-04] VITALS: Ht 175.3 cm; Wt 84.9 kg
[~2017-10-04 19:45] MED LIST changes: +ADULT ASPIRIN81 MG PO; +CORDARONE200 MG PO; +COREG3.125 M1 PO; +LEVOFLOXACIN750 MG PO; +LOSARTAN POTASS25 MG PO; +PLAVIX75 MG PO; +PREDNISONE20 MG PO
[2017-10-04 20:22] LABS: HEMATOCRIT 39.2 % (38.0-50.0); MCH 35.1 PG (29.0-34.0); MCHC 35.2 G/DL (30.0-36.0); MCV 99.7 FL (86-99); PLATELET COUNT 169 K/uL (156-360); RBC DIS.WIDTH-SD 51.7 % (39-53); RED BLOOD COUNT 3.93 M/uL (4.00-5.50); WHITE BLOOD COUNT 13.5 K/uL (4.1-10.2)
[2017-10-04 20:23] LABS: HEMOGLOBIN 13.8 G/DL (12.5-16.6)
[2017-10-04 20:33] LABS: CHLORIDE 105 mEq/L (99-109); POTASSIUM 4.6 mEq/L (3.7-5.4); SODIUM 140 mEq/L (136-147)
[2017-10-04 20:39] LABS: CREATININE 2.2 mg/dL (0.6-1.3); GFR ESTIMATE (CALCULATED) 32 mL/min/ (58.99-99999)
[2017-10-04 20:40] LABS: UREA NITROGEN (BUN) 39 mg/dL (9-23)
[2017-10-04 20:43] LABS: TROP-I INTERPRETATION NEGATIVE; TROPONIN-I 0.05 ng/mL (0.0-0.30)
[2017-10-04 20:52] LABS: GLUCOSE 131 mg/dL (70-99)
[2017-10-04 20:58] LABS: MAGNESIUM 2.6 mg/dL (1.3-2.7)
[2017-10-04] MEDS ORDERED: AMIODARONE HCL200 MG PO (21:44)
[2017-10-04] MEDS ORDERED: ADULT ASPIRIN R81 MG PO (21:45)
[2017-10-04] MEDS ORDERED: COZAAR25 MG PO (21:45)
[2017-10-04 23:57] VITALS: BP 128/78
[2017-10-05] VITALS (7 sets, daily range): BP systolic 101–128; BP diastolic 56–78
[2017-10-05 05:57] LABS: HEMATOCRIT 35.7 % (38.0-50.0); HEMOGLOBIN 12.1 G/DL (12.5-16.6); MCH 34.4 PG (29.0-34.0); MCHC 33.9 G/DL (30.0-36.0); MCV 101.4 FL (86-99); PLATELET COUNT 144 K/uL (156-360); RBC DIS.WIDTH-CV 14.3 % (11.8-14.6); RBC DIS.WIDTH-SD 52.5 % (39-53); RED BLOOD COUNT 3.52 M/uL (4.00-5.50); WHITE BLOOD COUNT 11.8 K/uL (4.1-10.2)
[2017-10-05 06:10] LABS: TROP-I INTERPRETATION NEGATIVE; TROPONIN-I 0.05 ng/mL (0.0-0.30)
[2017-10-05 06:26] LABS: ALBUMIN 3.3 G/DL (3.2-4.8); ALKALINE PHOSPHATASE 76 IU/L (3-129); ALT (GPT) 42 IU/L (3-49); AST (GOT) 19 IU/L (2-34); CHLORIDE 108 MEQ/L (99-109); GFR ESTIMATE (CALCULATED) 35 mL/min/ (58.99-99999); GLUCOSE 110 mg/dL (70-99); POTASSIUM 4.3 MEQ/L (3.7-5.4); SODIUM 139 MEQ/L (136-147); TOTAL BILIRUBIN 0.5 MG/DL (0.0-1.0); TOTAL PROTEIN 5.4 G/DL (6.4-8.3); UREA NITROGEN (BUN) 37 mg/dL (9-23)
[2017-10-05 14:42] LABS: TROP-I INTERPRETATION NEGATIVE; TROPONIN-I 0.04 ng/mL (0.0-0.30)
[2017-10-06] VITALS (7 sets, daily range): BP systolic 96–114; BP diastolic 54–66
[2017-10-07 04:30] VITALS: BP 112/62
[2017-10-07 08:47] VITALS: BP 138/67
[2017-10-07 10:35] LABS: CHLORIDE 109 MEQ/L (99-109); CREATININE 1.8 MG/DL (0.6-1.3); GFR ESTIMATE (CALCULATED) 40 mL/min/ (58.99-99999); GLUCOSE 94 mg/dL (70-99); POTASSIUM 3.8 MEQ/L (3.7-5.4); SODIUM 143 MEQ/L (136-147); UREA NITROGEN (BUN) 22 mg/dL (9-23)
[2017-10-07 12:37] VITALS: BP 116/61
[2017-10-07 16:05] VITALS: BP 101/58
[2017-10-07 20:00] VITALS: BP 100/60
[2017-10-08 00:53] VITALS: BP 113/59
[2017-10-08 04:29] VITALS: BP 100/61
[2017-10-08 05:42] LABS: BASOPHIL (%) 0.1 % (0-1); EOSINOPHIL (%) 1.2 % (0-5); EOSINOPHIL COUNT 0.1 K/uL (0-0.3); HEMATOCRIT 36.6 % (38.0-50.0); HEMOGLOBIN 12.7 G/DL (12.5-16.6); IMMATURE GRANULOCYTE (%) 0.6 % (0.0-0.7); LYMPHOCYTE (%) 14.5 % (15-42); LYMPHOCYTE COUNT 1.1 K/uL (1.0-2.8); MCH 35.4 PG (29.0-34.0); MCHC 34.7 G/DL (30.0-36.0); MCV 101.9 FL (86-99); MONOCYTE (%) 13.6 % (3-12); MONOCYTE COUNT 1.1 K/uL (0-0.8); NEUTROPHIL COUNT 5.4 K/uL (1.8-6.4); PLATELET COUNT 127 K/uL (156-360); RBC DIS.WIDTH-CV 14.4 % (11.8-14.6); RBC DIS.WIDTH-SD 54.2 % (39-53); RED BLOOD COUNT 3.59 M/uL (4.00-5.50); WHITE BLOOD COUNT 7.8 K/uL (4.1-10.2)
[2017-10-08 06:08] LABS: CHLORIDE 110 MEQ/L (99-109); CREATININE 1.9 MG/DL (0.6-1.3); GFR ESTIMATE (CALCULATED) 38 mL/min/ (58.99-99999); GLUCOSE 93 mg/dL (70-99); POTASSIUM 3.5 MEQ/L (3.7-5.4); SODIUM 140 MEQ/L (136-147); UREA NITROGEN (BUN) 18 mg/dL (9-23)
[2017-10-08 08:55] VITALS: BP 106/52
[2017-10-08 12:25] VITALS: BP 102/57
[2017-10-08 16:17] VITALS: BP 91/52
[2017-10-08 20:15] VITALS: BP 104/60
[2017-10-09] VITALS (7 sets, daily range): BP systolic 11–119; BP diastolic 56–66
[2017-10-09 06:04] LABS: ALBUMIN 3.9 G/DL (3.2-4.8); ALKALINE PHOSPHATASE 99 IU/L (3-129); ALT (GPT) 40 IU/L (3-49); AST (GOT) 24 IU/L (2-34); CHLORIDE 108 MEQ/L (99-109); GFR ESTIMATE (CALCULATED) 35 mL/min/ (58.99-99999); GLUCOSE 84 mg/dL (70-99); MAGNESIUM 1.7 mg/dl (1.3-2.7); POTASSIUM 4.1 MEQ/L (3.7-5.4); SODIUM 139 MEQ/L (136-147); TOTAL BILIRUBIN 0.5 MG/DL (0.0-1.0); TOTAL PROTEIN 5.7 G/DL (6.4-8.3); UREA NITROGEN (BUN) 24 mg/dL (9-23)
[2017-10-10 04:52] VITALS: BP 110/65
[2017-10-10 07:03] VITALS: BP 100/59
[2017-10-10 09:30] VITALS: BP 103/56
[2017-10-10 11:33] VITALS: BP 92/58
[2017-10-10 17:08] VITALS: BP 83/66
[2017-10-10 19:49] VITALS: BP 127/66
[2017-10-11 00:06] VITALS: BP 93/56
[2017-10-11 03:47] VITALS: BP 106/61
[2017-10-11 06:06] LABS: CHLORIDE 103 MEQ/L (99-109); GFR ESTIMATE (CALCULATED) 23 mL/min/ (58.99-99999); GLUCOSE 81 mg/dL (70-99); POTASSIUM 4.7 MEQ/L (3.7-5.4); SODIUM 134 MEQ/L (136-147); UREA NITROGEN (BUN) 33 mg/dL (9-23)
[2017-10-11 06:10] LABS: CREATININE 2.9 MG/DL (0.6-1.3)
[2017-10-11 08:04] VITALS: BP 105/59
[2017-10-11] MEDS ORDERED: CORDARONE200 MG PO (09:12)
== END 2017-10-11 10:10 | disposition home or self-care (01) | DRG 309 ==
LOC: EME 19:45 → EDOF 22:40 → 4EAST 22:40 → ENRESERV 22:41 → 4EAST 23:50
PROVIDERS: Family Medicine; Internal Medicine Cardiovascular Disease
DX: I47.2 Ventricular tachycardia (principal); N18.3 Chronic kidney disease, stage 3 (moderate); I50.22 Chronic systolic (congestive) heart failure; I13.0 Hypertensive heart and chronic kidney disease with heart failure and stage 1 through stage 4 chronic kidney disease, or unspecified chronic kidney disease; Z90.5 Acquired absence of kidney; Z86.73 Personal history of transient ischemic attack (TIA), and cerebral infarction without residual deficits; Z95.810 Presence of automatic (implantable) cardiac defibrillator; Z85.528 Personal history of other malignant neoplasm of kidney; I25.10 Atherosclerotic heart disease of native coronary artery without angina pectoris; J44.9 Chronic obstructive pulmonary disease, unspecified; D64.9 Anemia, unspecified; I34.0 Nonrheumatic mitral (valve) insufficiency; E78.5 Hyperlipidemia, unspecified; I25.2 Old myocardial infarction; F17.210 Nicotine dependence, cigarettes, uncomplicated; E87.6 Hypokalemia; E83.51 Hypocalcemia; Z79.82 Long term (current) use of aspirin; I25.5 Ischemic cardiomyopathy
CPT/HCPCS: 36415; 71046; 80048; 80053; 82330; 83735; 84100; 84484; 85025; 85027; 93005; 94760; 99202; 99281; 99285; J0780; J1644

== ENCOUNTER 2017-10-20 14:36 | Inpatient (IN) | payer OTHER, MEDICARE ==
[~2017-10-20] VITALS: Ht 177.8 cm; Wt 85.7 kg
[~2017-10-20 14:36] MED LIST changes: +ADULT ASPIRIN R81 MG PO; +AMIODARONE HCL200 MG PO; +COZAAR25 MG PO
[2017-10-20 15:11] LABS: HEMATOCRIT 35.5 % (38.0-50.0); HEMOGLOBIN 12.5 G/DL (12.5-16.6); MCH 34.7 PG (29.0-34.0); MCHC 35.2 G/DL (30.0-36.0); MCV 98.6 FL (86-99); PLATELET COUNT 174 K/uL (156-360); RBC DIS.WIDTH-CV 13.8 % (11.8-14.6); WHITE BLOOD COUNT 8.5 K/uL (4.1-10.2)
[2017-10-20 15:14] LABS: CHLORIDE 96 mEq/L (99-109); POTASSIUM 3.8 mEq/L (3.7-5.4); SODIUM 136 mEq/L (136-147)
[2017-10-20 15:15] LABS: GLUCOSE 109 mg/dL (70-99)
[2017-10-20 15:26] LABS: TROP-I INTERPRETATION NEGATIVE; TROPONIN-I 0.29 ng/mL (0.0-0.30)
[2017-10-20 15:29] LABS: CREATININE 5.1 mg/dL (0.6-1.3); GFR ESTIMATE (CALCULATED) 12 mL/min/ (58.99-99999); UREA NITROGEN (BUN) 51 mg/dL (9-23)
[2017-10-20 15:39] LABS: MAGNESIUM 1.9 mg/dL (1.3-2.7)
[2017-10-20 15:44] LABS: PHOSPHORUS 4.7 mg/dL (2.5-4.9)
[2017-10-20] MEDS ORDERED: AMIODARONE HCL200 MG PO (16:37)
[2017-10-20 18:51] LABS: CREATINE KINASE 416 IU/L (1-294)
[2017-10-20 19:20] VITALS: BP 82/50
[2017-10-20 23:55] VITALS: BP 80/51
[2017-10-21 01:03] LABS: TROP-I INTERPRETATION NEGATIVE; TROPONIN-I 0.14 ng/mL (0.0-0.30)
[2017-10-21 04:30] VITALS: BP 85/53
[2017-10-21 07:15] VITALS: BP 89/50
[2017-10-21 08:53] LABS: HEMATOCRIT 28.6 % (38.0-50.0); HEMOGLOBIN 9.5 G/DL (12.5-16.6); MCH 33.1 PG (29.0-34.0); MCHC 33.2 G/DL (30.0-36.0); MCV 99.7 FL (86-99); PLATELET COUNT 133 K/uL (156-360); RBC DIS.WIDTH-SD 50.8 % (39-53); RED BLOOD COUNT 2.87 M/uL (4.00-5.50); WHITE BLOOD COUNT 4.2 K/uL (4.1-10.2)
[2017-10-21 09:08] LABS: CHLORIDE 104 MEQ/L (99-109); GLUCOSE 86 mg/dL (70-99); POTASSIUM 3.7 MEQ/L (3.7-5.4); SODIUM 137 MEQ/L (136-147); UREA NITROGEN (BUN) 51 mg/dL (9-23)
[2017-10-21 09:16] LABS: CREATININE 3.7 MG/DL (0.6-1.3); GFR ESTIMATE (CALCULATED) 17 mL/min/ (58.99-99999)
[2017-10-21 09:44] LABS: TROP-I INTERPRETATION NEGATIVE; TROPONIN-I 0.14 ng/mL (0.0-0.30)
[2017-10-21 12:30] VITALS: BP 90/55
[2017-10-21 17:19] VITALS: BP 90/55
[2017-10-21 18:45] VITALS: BP 85/48
[2017-10-21 22:38] VITALS: BP 95/59
[2017-10-22] VITALS (7 sets, daily range): BP systolic 94–196; BP diastolic 55–81
[2017-10-22 06:03] LABS: CHLORIDE 107 MEQ/L (99-109); GFR ESTIMATE (CALCULATED) 24 mL/min/ (58.99-99999); POTASSIUM 3.4 MEQ/L (3.7-5.4); SODIUM 139 MEQ/L (136-147); UREA NITROGEN (BUN) 47 mg/dL (9-23)
[2017-10-22 06:15] LABS: CREATININE 2.8 MG/DL (0.6-1.3); GLUCOSE 199 mg/dL (70-99)
[2017-10-23 04:40] VITALS: BP 127/63
[2017-10-23 05:18] LABS: BASOPHIL (%) 0.2 % (0-1); EOSINOPHIL (%) 0 % (0-5); HEMATOCRIT 28.5 % (38.0-50.0); HEMOGLOBIN 9.7 G/DL (12.5-16.6); IMMATURE GRANULOCYTE (%) 1.9 % (0.0-0.7); LYMPHOCYTE (%) 7.7 % (15-42); LYMPHOCYTE COUNT 0.5 K/uL (1.0-2.8); MCH 33.7 PG (29.0-34.0); MONOCYTE (%) 6.4 % (3-12); MONOCYTE COUNT 0.4 K/uL (0-0.8); NEUTROPHIL (%) 83.8 % (45-76); NEUTROPHIL COUNT 5.2 K/uL (1.8-6.4); RBC DIS.WIDTH-CV 13.8 % (11.8-14.6); RED BLOOD COUNT 2.88 M/uL (4.00-5.50); WHITE BLOOD COUNT 6.2 K/uL (4.1-10.2)
[2017-10-23 05:33] LABS: PLATELET COUNT 215 K/uL (156-360)
[2017-10-23 06:16] LABS: CHLORIDE 111 MEQ/L (99-109); CREATINE KINASE 37 IU/L (1-294); GFR ESTIMATE (CALCULATED) 32 mL/min/ (58.99-99999); POTASSIUM 3.5 MEQ/L (3.7-5.4); SODIUM 141 MEQ/L (136-147); UREA NITROGEN (BUN) 38 mg/dL (9-23)
[2017-10-23 06:20] LABS: CREATININE 2.2 MG/DL (0.6-1.3); GLUCOSE 120 mg/dL (70-99)
[2017-10-23 06:55] VITALS: BP 117/65
[2017-10-23 10:57] VITALS: BP 123/60
[2017-10-23 16:49] VITALS: BP 127/61
[2017-10-23 20:39] VITALS: BP 142/63
[2017-10-23 23:19] VITALS: BP 122/73
[2017-10-24 04:30] VITALS: BP 131/64
[2017-10-24 05:56] LABS: BASOPHIL (%) 0.4 % (0-1); EOSINOPHIL (%) 0 % (0-5); HEMATOCRIT 27.8 % (38.0-50.0); HEMOGLOBIN 9.5 G/DL (12.5-16.6); IMMATURE GRANULOCYTE (%) 4.9 % (0.0-0.7); LYMPHOCYTE (%) 7.6 % (15-42); LYMPHOCYTE COUNT 0.7 K/uL (1.0-2.8); MCH 33.9 PG (29.0-34.0); MCHC 34.2 G/DL (30.0-36.0); MCV 99.3 FL (86-99); MONOCYTE (%) 6.7 % (3-12); MONOCYTE COUNT 0.6 K/uL (0-0.8); NEUTROPHIL (%) 80.4 % (45-76); NEUTROPHIL COUNT 7.6 K/uL (1.8-6.4); PLATELET COUNT 248 K/uL (156-360); RBC DIS.WIDTH-CV 13.8 % (11.8-14.6); RBC DIS.WIDTH-SD 50.6 % (39-53); WHITE BLOOD COUNT 9.4 K/uL (4.1-10.2)
[2017-10-24 06:32] LABS: CHLORIDE 113 MEQ/L (99-109); CREATININE 2.2 MG/DL (0.6-1.3); GFR ESTIMATE (CALCULATED) 32 mL/min/ (58.99-99999); GLUCOSE 149 mg/dL (70-99); SODIUM 140 MEQ/L (136-147); UREA NITROGEN (BUN) 38 mg/dL (9-23)
[2017-10-24 06:36] LABS: POTASSIUM 4.6 MEQ/L (3.7-5.4)
[2017-10-24 07:30] VITALS: BP 142/71
[2017-10-24 12:43] VITALS: BP 157/68
[2017-10-24 17:20] VITALS: BP 171/70
[2017-10-24 19:34] VITALS: BP 134/73
[2017-10-24 22:34] VITALS: BP 141/74
[2017-10-25 05:49] LABS: CHLORIDE 114 MEQ/L (99-109); CREATININE 2.2 MG/DL (0.6-1.3); GFR ESTIMATE (CALCULATED) 32 mL/min/ (58.99-99999); GLUCOSE 119 mg/dL (70-99); POTASSIUM 4.8 MEQ/L (3.7-5.4); SODIUM 142 MEQ/L (136-147); UREA NITROGEN (BUN) 39 mg/dL (9-23)
[2017-10-25 07:55] VITALS: BP 133/83
[2017-10-25] MEDS ORDERED: AMLODIPINE BESYL5 MG PO (10:08)
[2017-10-25] MEDS ORDERED: K-DUR20 MEQ PO (10:09)
[2017-10-25] MEDS ORDERED: PREDNISONE20 MG PO (10:10)
[2017-10-25] MEDS ORDERED: CEFTIN500 MG PO (10:14)
[2017-10-25 11:23] VITALS: BP 138/78
== END 2017-10-25 13:32 | disposition home or self-care (01) | DRG 682 ==
LOC: EME 14:36 → 4EAST 17:20 → EDOF 17:20 → 4EAST 17:20 → ENRESERV 17:24 → 4EAST 19:10
PROVIDERS: Family Medicine; Nurse Practitioner Family
DX: N17.9 Acute kidney failure, unspecified (principal); J44.0 Chronic obstructive pulmonary disease with (acute) lower respiratory infection; J18.9 Pneumonia, unspecified organism; Y95 Nosocomial condition; I13.0 Hypertensive heart and chronic kidney disease with heart failure and stage 1 through stage 4 chronic kidney disease, or unspecified chronic kidney disease; I50.9 Heart failure, unspecified; N18.3 Chronic kidney disease, stage 3 (moderate); G43.909 Migraine, unspecified, not intractable, without status migrainosus; I95.9 Hypotension, unspecified; I25.5 Ischemic cardiomyopathy; I25.10 Atherosclerotic heart disease of native coronary artery without angina pectoris; D64.9 Anemia, unspecified; E78.5 Hyperlipidemia, unspecified; F17.210 Nicotine dependence, cigarettes, uncomplicated; I47.2 Ventricular tachycardia; R19.7 Diarrhea, unspecified; M10.9 Gout, unspecified; I25.2 Old myocardial infarction; Z79.82 Long term (current) use of aspirin; Z79.02 Long term (current) use of antithrombotics/antiplatelets; Z85.528 Personal history of other malignant neoplasm of kidney; Z86.73 Personal history of transient ischemic attack (TIA), and cerebral infarction without residual deficits; Z95.0 Presence of cardiac pacemaker; Z95.810 Presence of automatic (implantable) cardiac defibrillator; Z90.5 Acquired absence of kidney
CPT/HCPCS: 36415; 71046; 80048; 80053; 82140; 82550; 82948; 83735; 84100; 84145 90; 84484; 85025; 85027; 87040; 87493; 87506; 93005; 94640; 94640 76; 94760; 94799; 99202; 99281; 99285; J1644; J2543; J2930; J7030; J7050; J7512